=== PATIENT | female | born 1995 | race African-American/Black ===

== ENCOUNTER 2025-09-06 18:42 | Emergency (ER) | payer MEDICAID, OTHER ==
[~2025-09-06] VITALS: Ht 154.9 cm; Wt 59.0 kg
[2025-09-06 18:48] VITALS: O2SAT 100
[2025-09-06 19:07] LABS: CLARITY URINE CLEAR (CLEAR); GLUCOSE URINE NEGATIVE (NEGATIVE); KETONES URINE 1+ (NEGATIVE); LEUKOCYTE ESTERASE URINE TRACE (NEGATIVE); NITRITE URINE NEGATIVE (NEGATIVE); OCCULT BLOOD URINE NEGATIVE (NEGATIVE); PH URINE 6.5 (4.5-8.0); PROTEIN URINE 1+ (NEGATIVE); SPECIFIC GRAVITY URINE 1.023 (1.005-1.030); UROBILINOGEN URINE 2.0 E.U./dL (0.2-1.0)
[2025-09-06 19:39] LABS: COLOR URINE YELLOW (YELLOW)
[2025-09-06 19:40] LABS: RBC URINE NONE SEEN /hpf (0-2); WBC URINE 0-2 /hpf (0-2)
[2025-09-06 19:41] LABS: BACTERIA URINE NONE SEEN; MUCUS URINE TRACE /lpf (< = 2+); SQUAMOUS EPITHELIAL CELL URINE FEW /lpf (RARE/1+)
[2025-09-06 20:32] LABS: HCG SCREEN NEGATIVE
[2025-09-06 20:33] LABS: CREATININE 0.7 mg/dL (0.6-1.0); UREA NITROGEN BLOOD 8 mg/dL (9-23)
[2025-09-06 22:02] LABS: HEMATOCRIT. 34.5 % (36.0-48.0); HEMOGLOBIN. 11.5 g/dL (12.0-16.0); MEAN PLATELET VOLUME 8.9 fl (7.4-10.4); PLATELET 195 x1000/uL (130-400); RED BLOOD CELL COUNT 4.16 mill/uL (4.2-5.4); RED CELL DISTRIBUTION WIDTH 15.7 % (11.6-14.6)
[2025-09-06 23:00] LABS: LYMPHOCYTES % MANUAL 8.0 % (20.0-60.0); MONOCYTES % MANUAL 4.0 % (2.0-8.0); NEUTROPHILS % MANUAL 88.0 % (45.0-75.0); PLATELET ESTIMATE NORMAL
[2025-09-07] MEDS ORDERED: ONDA-239 PO (00:08)
[2025-09-07] MEDS ORDERED: TRAM50TA3 MT (00:08)
[2025-09-07] MEDS ORDERED: FAMO20TA8 MT (00:08)
[2025-09-07] MEDS: ONDANSETRON 4MG ODT PO ONE (00:55)
[2025-09-07] MEDS: FAMOTIDINE 20MG TABLET PO ONE (00:55)
[2025-09-07 01:00] VITALS: BP 112/72; PULSE 95; RESP 16; TEMP 37.2; O2SAT 100
== END 2025-09-07 01:05 | disposition home or self-care (01) ==
LOC: ER 18:42
DX: K27.9 Peptic ulcer, site unspecified, unspecified as acute or chronic, without hemorrhage or perforation (principal); K29.70 Gastritis, unspecified, without bleeding; K80.50 Calculus of bile duct without cholangitis or cholecystitis without obstruction; N39.0 Urinary tract infection, site not specified; K21.9 Gastro-esophageal reflux disease without esophagitis; Z90.49 Acquired absence of other specified parts of digestive tract
CPT/HCPCS: 99283; 80048; 81003; 81025; 84703; 85025; 36415; Q0162